=== PATIENT | female | born 1990 ===

== ENCOUNTER 2016-12-08 11:25 | Emergency (ER) | payer MEDICAID ==
[2016-12-08 11:40] VITALS: BP 102/66; RESP 19; TEMP 98.6; O2SAT 99
--- NOTE | 2016-12-08 12:17 | ED PDOC ---
HPI: General Adult Time Seen by Provider: 12/08/16 11:57 Chief Complaint (Provider): headache History Per: Patient History/Exam Limitations: no limitations Additional Complaint(s): 26yo female complaining of bilateral temporal throbbing headache for 2 days associated with intermittent nausea and feeling jittery. When standing up and walking around she feels dizzy as if she could pass out. When she went to sleep last night there were no problems however symptoms continue this morning. She has not taken any medication to relieve pain. Past Medical History Reviewed: Historical Data, Nursing Documentation, Vital Signs Vital Signs: Last Vital Signs Temp 98.6 F 12/08/16 11:38 Pulse 65 12/08/16 12:46 Resp 19 12/08/16 11:38 BP 102/66 12/08/16 11:38 Pulse Ox 99 12/08/16 12:19 - Medical History PMH: No Chronic Diseases - Surgical History Surgical History: Appendectomy - Family History Family History: States: Unknown Family Hx - Social History Current smoker - smoking cessation education provided: No Alcohol: None Drugs: Denies - Home Medications Home Medications: Ambulatory Orders Medication Instructions Recorded Azithromycin [Zithromax] 250 mg PO DAILY #6 cap 03/25/15 Naproxen [Naprosyn] 500 mg PO BID #20 tab 04/27/15 Tizanidine Hydrochloride 4 mg PO Q6 PRN #20 tab 04/27/15 [Tizanidine HCl] Tramadol Hydrochloride [Tramadol 50 mg PO Q6H PRN #20 tab 04/27/15 HCl] Acetic Acid/Antipyrine/Benzo 1 - 2 drop OT BID #14 reji 08/23/15 [Auralgan 14 ml] Amoxicillin 500 mg PO BID #14 cap 08/23/15 Naproxen [Naprosyn] 500 mg PO Q12H #20 tab 05/24/16 miSOPROStol [Cytotec] 200 mcg VAG ONCE #4 tab 07/26/16 traMADol [Ultram] 50 mg PO TID PRN #15 tab 07/26/16 - Allergies Allergies/Adverse Reactions: Allergies Allergy/AdvReac Type Severity Reaction Status Date / Time No Known Allergies Allergy Verified 04/27/15 15:15 Review of Systems ROS Statement: Except As Marked, All Systems Reviewed And Found Negative Neurological: Negative for: Headache Physical Exam - Reviewed Nursing Documentation Reviewed: Yes Vital Signs Reviewed: Yes - Physical Exam Appears: Positive for: Well, Non-toxic, No Acute Distress Head Exam: Positive for: ATRAUMATIC, NORMAL INSPECTION, NORMOCEPHALIC Skin: Positive for: Warm, Dry Eye Exam: Positive for: EOMI, PERRL Extremity: Positive for: Normal ROM Neurologic/Psych: Positive for: Alert, Oriented (x3). Negative for: Motor/ Sensory Deficits - Laboratory Results Result Diagrams: 12/08/16 12:50 12/08/16 12:50 - ECG O2 Sat by Pulse Oximetry: 99 (RA) Pulse Ox Interpretation: Normal Medical Decision Making Medical Decision Makin: Preg (-) EKG: NSR at 65 bpm, no axis deviation, no acute ST changes, as read by ED MD Pro 98 CBC and CMOP resulted WNL Pt mediated with Motin and Flexeril administered for headache, good relief obtained. Pt denies nay headache or dizziness son re-eval. Neuro exam remains non focal. Stable fro discharge at this time. Pt has no complaints on follow up. Disposition - Clinical Impression Clinical Impression: Migraine, Lightheaded - Patient ED Disposition Is Patient to be Admitted: No - Disposition Disposition: Routine/Home Disposition Time: 14:45 Condition: STABLE Instructions: Migraine Headache (ED), Lightheadedness (ED) Additional Comments - Additional Comments Additional Comments: Scribe Attestation: Documented by Tyrese Vargas acting as a scribe for Ileana Sky PA-C. Provider Scribe Attestation: All medical record entries made by the Scribe were at my direction and personally dictated by me. I have reviewed the chart and agree that the record accurately reflects my personal performance of the history, physical exam, medical decision making, and the department course for this patient. I have also personally directed, reviewed, and agree with the discharge instructions and disposition.
[2016-12-08 12:47] VITALS: PULSE 65
[2016-12-08 13:36] LABS: BASO # 0.1 K/uL (0.0-0.2); BASO % 0.8 % (0.0-2.0); EOS % 0.4 % (0.0-4.0); HEMATOCRIT 38.9 % (34.0-47.0); LYMPH # 1.5 K/uL (1.0-4.3); LYMPH % 17.8 % (20.0-40.0); MEAN CELL VOLUME 90.4 fl (81.0-99.0); MEAN CORPUSCULAR HEMOGLOBIN 30.3 pg (27.0-31.0); MEAN CORPUSCULAR HGB CONC 33.6 g/dL (33.0-37.0); MONO # 0.3 K/uL (0.0-0.8); MONO % 3.8 % (0.0-10.0); NEUT # 6.7 K/uL (1.8-7.0); NEUT % 77.2 % (50.0-75.0); NRBC % 0.1 % (0.0-0.0); RED CELL DISTRIBUTION WIDTH 13.7 % (11.5-14.5); WHITE BLOOD COUNT 8.6 K/uL (4.8-10.8)
[2016-12-08 13:47] LABS: ALB/GLOB RATIO 1.4 (1.0-2.1); ALKALINE PHOSPHATASE 58 U/L (38-126); ALT/SGPT 18 U/L (9-52); AST/SGOT 23 U/L (14-36); BILIRUBIN,TOTAL 0.6 mg/dl (0.2-1.3); BLOOD UREA NITROGEN 12 mg/dl (7-17); CALCIUM 9.7 mg/dL (8.4-10.2); CARBON DIOXIDE 22 mmol/L (22-30); CHLORIDE 107 mmol/L (98-107); GFR AFRICAN-AMERICAN > 60; GLUCOSE,RANDOM 88 mg/dL (65-105); SODIUM 145 mmol/l (132-148); TOTAL PROTEIN 7.9 G/DL (6.3-8.2)
--- NOTE | 2016-12-09 05:46 | CARD ---
APPROVED REPORT EKG Measurement Heart [id number] <Conclusion> Normal sinus rhythm Normal ECG
== END 2016-12-08 15:12 | disposition home or self-care (01) ==
LOC: H.ER 11:25
DX: G43.909 Migraine, unspecified, not intractable, without status migrainosus (principal); R42 Dizziness and giddiness

== ENCOUNTER 2017-08-27 20:16 | Emergency (ER) | payer MEDICAID ==
[2017-08-27 20:49] VITALS: BP 101/71; PULSE 73; RESP 16; TEMP 98.5; O2SAT 96
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
[2017-08-27] MEDS ORDERED: Povidone Iodine Topical 10% Sol ONE (22:04)
[2017-08-27] MEDS ORDERED: Lidocaine 1% Inj (20ml) ONE (22:04)
[2017-08-27] MEDS ORDERED: Lidocaine 1% Inj (20ml) IJ ONE (22:38)
== END 2017-08-27 23:25 | disposition home or self-care (01) ==
LOC: H.ER 20:16
DX: S61.411A Laceration without foreign body of right hand, initial encounter (principal); W25.XXXA Contact with sharp glass, initial encounter; Y92.000 Kitchen of unspecified non-institutional (private) residence as the place of occurrence of the external cause

== ENCOUNTER 2017-09-03 15:45 | Emergency (ER) | payer MEDICAID ==
[2017-09-03 15:50] VITALS: BP 100/66; PULSE 79; RESP 18; TEMP 97.6; O2SAT 99
--- NOTE | 2017-09-03 16:02 | ED PDOC ---
HPI: Wound Care - HPI Time Seen by Provider: 09/03/17 15:51 Chief Complaint (Nursing): Suture/Staple Removal Chief Complaint (Provider): Suture removal History Per: Patient Exam Limitations: no limitations Additional Complaint(s): Patient is a 27 y/o female with no significant past medical history presenting to the emergency department for suture removal on right hand. Two 5-0 were placed last week. Denies any complaints. Past Medical History Reviewed: Historical Data Vital Signs: Last Vital Signs Temp 97.6 F 09/03/17 15:48 Pulse 79 09/03/17 15:48 Resp 18 09/03/17 15:48 BP 100/66 09/03/17 15:48 Pulse Ox 99 09/03/17 15:48 - Medical History PMH: No Chronic Diseases - Surgical History Surgical History: Appendectomy - Family History Family History: States: Unknown Family Hx - Social History Current smoker - smoking cessation education provided: No Ex-Smoker (has not smoked in the last 12 months): No Alcohol: None Drugs: Denies - Home Medications Home Medications: Ambulatory Orders Medication Instructions Recorded Azithromycin [Zithromax] 250 mg PO DAILY #6 cap 03/25/15 Naproxen [Naprosyn] 500 mg PO BID #20 tab 04/27/15 Tizanidine Hydrochloride 4 mg PO Q6 PRN #20 tab 04/27/15 [Tizanidine HCl] Tramadol Hydrochloride [Tramadol 50 mg PO Q6H PRN #20 tab 04/27/15 HCl] Acetic Acid/Antipyrine/Benzo 1 - 2 drop OT BID #14 reji 08/23/15 [Auralgan 14 ml] Amoxicillin 500 mg PO BID #14 cap 08/23/15 Naproxen [Naprosyn] 500 mg PO Q12H #20 tab 05/24/16 miSOPROStol [Cytotec] 200 mcg VAG ONCE #4 tab 07/26/16 traMADol [Ultram] 50 mg PO TID PRN #15 tab 07/26/16 Ibuprofen [Motrin] 600 mg PO Q6 #20 tab 12/08/16 - Allergies Allergies/Adverse Reactions: Allergies Allergy/AdvReac Type Severity Reaction Status Date / Time No Known Allergies Allergy Verified 09/03/17 15:48 Review of Systems ROS Statement: Except As Marked, All Systems Reviewed And Found Negative Skin: Positive for: Other (sutures on right hand between 5th and 4th digits) Physical Exam - Reviewed Nursing Documentation Reviewed: Yes Vital Signs Reviewed: Yes - Physical Exam Appears: Positive for: Well, Non-toxic, No Acute Distress Head Exam: Positive for: ATRAUMATIC, NORMAL INSPECTION, NORMOCEPHALIC Skin: Positive for: Normal Color, Warm, Dry Eye Exam: Positive for: Normal appearance Neck: Positive for: Normal Cardiovascular/Chest: Positive for: Regular Rate, Rhythm Respiratory: Negative for: Accessory Muscle Use, Respiratory Distress Extremity: Positive for: Normal ROM. Negative for: Pedal Edema Neurologic/Psych: Positive for: Alert, Oriented (x3) - ECG O2 Sat by Pulse Oximetry: 99 (RA) Medical Decision Making Medical Decision Making: On 08/27/17, patient received sutures on the webspace between her 4th and 5th digit of her right hand. Patient had sustained a laceration in that area. Sutures removed today without any complications. ~ Scribe Attestation: Documented by Jie Dwyer, acting as a scribe for ABRAHAM Lopes. Provider Scribe Attestation: All medical record entries made by the Scribe were at my direction and personally dictated by me. I have reviewed the chart and agree that the record accurately reflects my personal performance of the history, physical exam, medical decision making, and the department course for this patient. I have also personally directed, reviewed, and agree with the discharge instructions and disposition. Disposition - Clinical Impression Clinical Impression: Removal of suture - Disposition Instructions: Stitches Removal (ED) Forms: [employer] (Indonesian)
== END 2017-09-03 16:02 | disposition home or self-care (01) ==
LOC: H.ER 15:45
DX: Z48.02 Encounter for removal of sutures (principal)

== ENCOUNTER 2017-10-23 09:14 | Emergency (ER) | payer MEDICAID, OTHER ==
[2017-10-23 09:35] VITALS: TEMP 98
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
[2017-10-23] MEDS ORDERED: Oxycodone/Acetaminophen 5/325 mg Tab PO STA (11:50)
[2017-10-23] MEDS ORDERED: Oxycodone/Acetaminophen 5/325 mg Tab ONE (12:03)
[2017-10-23 12:52] VITALS: BP 118/65; PULSE 70; RESP 18; O2SAT 100
== END 2017-10-23 12:54 | disposition home or self-care (01) ==
LOC: H.ER 09:14
DX: M54.9 Dorsalgia, unspecified (principal); M54.2 Cervicalgia; S09.90XA Unspecified injury of head, initial encounter; M25.569 Pain in unspecified knee; V03.10XA Pedestrian on foot injured in collision with car, pick-up truck or van in traffic accident, initial encounter; Y92.410 Unspecified street and highway as the place of occurrence of the external cause

== ENCOUNTER 2017-10-24 18:18 | Emergency (ER) | payer MEDICAID, OTHER ==
[2017-10-24 18:21] VITALS: TEMP 98.3; O2SAT 99
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
[2017-10-24 19:44] LABS: BASO # 0.1 K/uL (0.0-0.2); BASO % 1.1 % (0.0-2.0); EOS # 0.2 K/uL (0.0-0.7); EOS % 2.6 % (0.0-4.0); HEMOGLOBIN 12.7 g/dL (12.0-16.0); LYMPH # 1.8 K/uL (1.0-4.3); LYMPH % 28.3 % (20.0-40.0); MEAN CORPUSCULAR HEMOGLOBIN 30.5 pg (27.0-31.0); MEAN CORPUSCULAR HGB CONC 33.6 g/dL (33.0-37.0); MEAN PLATELET VOLUME 9.3 fl (7.2-11.7); MONO # 0.5 K/uL (0.0-0.8); MONO % 8.5 % (0.0-10.0); NEUT # 3.8 K/uL (1.8-7.0); NEUT % 59.5 % (50.0-75.0); NRBC % 0.1 % (0.0-0.0); RBC 4.17 Mil/uL (3.80-5.20); RED CELL DISTRIBUTION WIDTH 13.8 % (11.5-14.5); WHITE BLOOD COUNT 6.4 K/uL (4.8-10.8)
[2017-10-24 19:55] LABS: ALB/GLOB RATIO 1.3 (1.0-2.1); ALBUMIN 4.1 g/dL (3.5-5.0); ALT/SGPT 21 U/L (9-52); AST/SGOT 13 U/L (14-36); BLOOD UREA NITROGEN 16 mg/dl (7-17); CALCIUM 9.2 mg/dL (8.4-10.2); GFR AFRICAN-AMERICAN > 60; GFR NON-AFRICAN AMERICAN > 60
[2017-10-24] MEDS ORDERED: Sodium Chloride 0.9% 1,000 ML IV STA (21:07)
[2017-10-24 22:19] VITALS: BP 100/55; PULSE 74; RESP 21
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
--- NOTE | 2017-10-24 22:29 | ED PDOC ---
- Laboratory Results Result Diagrams: 10/24/17 19:30 10/24/17 19:30 - ECG O2 Sat by Pulse Oximetry: 99 - Progress ED Course And Treament: IMPRESSION: No acute intracranial abnormality. Remainder of findings as above. Thank you for allowing us to participate in the care of your patient. Dictated and Authenticated by: Maximilian Borja MD Imitrex 6.25 sc in ED NS 1 liter wide open Patient feels improved in ED Disposition - Clinical Impression Clinical Impression: Head injury, Post concussion syndrome - POA Present On Arrival: None - Disposition Referrals: [facility] [Outside] Disposition: Routine/Home Disposition Time: 22:28 Condition: STABLE Prescriptions: Meclizine [Antivert] 1 - 2 tab PO Q6 PRN #24 tab PRN Reason: Dizziness Ondansetron [Zofran Odt] 4 mg PO Q8 PRN #8 odt PRN Reason: Nausea/Vomiting Instructions: Postconcussion Syndrome (DC) Forms: [facility] (Persian), [facility] ED School/Work Excuse
== END 2017-10-24 23:15 | disposition home or self-care (01) ==
LOC: H.ER 18:18
DX: F07.81 Postconcussional syndrome (principal)
CPT/HCPCS: 70450; 80053; 81025; 82948; 85025; 96372; 96374; 99284; J2405; J3030; J7040

== ENCOUNTER 2018-01-15 15:47 | Emergency (ER) | payer MEDICAID ==
[2018-01-15] MEDS ORDERED: Sodium Chloride 0.9% 1,000 ML IV STA (16:05)
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
--- NOTE | 2018-01-15 17:36 | CT ---
PROCEDURE: CT HEAD WITHOUT CONTRAST. HISTORY: PRADHAN COMPARISON: 10/24/2017 TECHNIQUE: Axial computed tomography images were obtained through the head/brain without intravenous contrast. Radiation dose: Total exam DLP = 752.87 mGy-cm. This CT exam was performed using one or more of the following dose reduction techniques: Automated exposure control, adjustment of the mA and/or kV according to patient size, and/or use of iterative reconstruction technique. FINDINGS: HEMORRHAGE: No intracranial hemorrhage. BRAIN: No mass effect or edema. The lateral ventricles chronic parallel course and there is no evidence of a corpus callosum on sagittal reconstructions. 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 VENTRICLES: No hydrocephalus. No midline shift. CALVARIUM: Unremarkable. PARANASAL SINUSES: Chronic ethmoid and sphenoid sinusitis. MASTOID AIR CELLS: Unremarkable as visualized. No inflammatory changes. OTHER FINDINGS: None. IMPRESSION: No intracranial mass, hemorrhage or evidence of acute infarct. 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
[2018-01-15 21:26] VITALS: TEMP 98.5
[2018-01-15 21:41] VITALS: BP 104/74; PULSE 78; RESP 18
[2018-01-17 17:48] VITALS: O2SAT 100
== END 2018-01-15 21:40 | disposition home or self-care (01) ==
LOC: H.ER 15:47
DX: R51 Headache (principal); J32.2 Chronic ethmoidal sinusitis; J32.3 Chronic sphenoidal sinusitis
CPT/HCPCS: 70450; 81025; 96361; 96374; 99285; J2765; J7030

== ENCOUNTER 2018-06-17 16:34 | Emergency (ER) | payer MEDICAID ==
[2018-06-17 16:50] VITALS: TEMP 98.2
--- NOTE | 2018-06-17 18:33 | CT ---
Date of service: 06/17/2018 PROCEDURE: CT HEAD WITHOUT CONTRAST. HISTORY: headache, dizziness COMPARISON: Comparison is made with 01/15/2018 TECHNIQUE: Axial computed tomography images were obtained through the head/brain without intravenous contrast. Radiation dose: Total exam DLP = 753.49 mGy-cm. This CT exam was performed using one or more of the following dose reduction techniques: Automated exposure control, adjustment of the mA and/or kV according to patient size, and/or use of iterative reconstruction technique. FINDINGS: HEMORRHAGE: No intracranial hemorrhage. BRAIN: No mass effect or edema. No atrophy or chronic microvascular ischemic changes. VENTRICLES: Abnormal shape of the lateral ventricles is again noted suggestive of agenesis or dysgenesis of the corpus callosum. CALVARIUM: Unremarkable. PARANASAL SINUSES: Unremarkable as visualized. No significant inflammatory changes. MASTOID AIR CELLS: Unremarkable as visualized. No inflammatory changes. OTHER FINDINGS: None. 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 No evidence of acute intracranial hemorrhage mass effect or midline shift.
[2018-06-17 18:49] LABS: BASO # 0.1 K/uL (0.0-0.2); BASO % 1.1 % (0.0-2.0); EOS # 0.2 K/uL (0.0-0.7); EOS % 2.4 % (0.0-4.0); HEMOGLOBIN 13.1 g/dL (12.0-16.0); LYMPH # 2.5 K/uL (1.0-4.3); LYMPH % 32.7 % (20.0-40.0); MEAN CELL VOLUME 91.6 fl (81.0-99.0); MEAN CORPUSCULAR HGB CONC 33.8 g/dL (33.0-37.0); MEAN PLATELET VOLUME 9.5 fl (7.2-11.7); MONO # 0.5 K/uL (0.0-0.8); MONO % 7.1 % (0.0-10.0); NEUT # 4.4 K/uL (1.8-7.0); NEUT % 56.7 % (50.0-75.0); NRBC % 0.1 % (0.0-0.0); RBC 4.24 Mil/uL (3.80-5.20); RED CELL DISTRIBUTION WIDTH 13.7 % (11.5-14.5); WHITE BLOOD COUNT 7.7 K/uL (4.8-10.8)
[2018-06-17 19:06] LABS: ALB/GLOB RATIO 1.3 (1.0-2.1); ALBUMIN 4.2 g/dL (3.5-5.0); ALT/SGPT 15 U/L (9-52); AST/SGOT 28 U/L (14-36); BLOOD UREA NITROGEN 10 mg/dl (7-17); CALCIUM 9.4 mg/dL (8.4-10.2); GFR NON-AFRICAN AMERICAN > 60
--- NOTE | 2018-06-17 20:03 | ED PDOC ---
Syncope/Near Syncope/Dizziness Time Seen by Provider: 06/17/18 17:19 Chief Complaint (Nursing): Dizziness/Lightheaded Chief Complaint (Provider): Dizziness/Lightheaded History Per: Patient History/Exam Limitations: no limitations Onset/Duration Of Symptoms: Hrs Current Symptoms Are (Timing): Still Present Additional Complaint(s): Jaelyn Bess is a 28 year old female with no past medical history who is presenting to the ED for evaluation of dizziness described as room spinning associated with a headache. Patient states that she has had similar episodes in the past on and off but she states that it felt worse today because she was at work. She denies any chest pain or palpitations and offers no other medical complaints. PMD: none provided Past Medical History Reviewed: Historical Data, Nursing Documentation, Vital Signs Vital Signs: Last Vital Signs Temp 98.2 F 06/17/18 16:48 Pulse 69 06/17/18 16:48 Resp 16 06/17/18 16:48 BP 112/66 06/17/18 16:48 Pulse Ox 99 06/17/18 16:48 - Medical History PMH: No Chronic Diseases Denies: Chronic Kidney Disease - Surgical History Surgical History: Appendectomy - Family History Family History: States: Unknown Family Hx - Social History Current smoker - smoking cessation education provided: No Alcohol: None Drugs: Denies - Immunization History Hx Tetanus Toxoid Vaccination: No Hx Influenza Vaccination: No Hx Pneumococcal Vaccination: No - Home Medications Home Medications: Ambulatory Orders Medication Instructions Recorded Naproxen [Naprosyn] 500 mg PO BID PRN #15 tablet 01/15/18 Ondansetron [Zofran Odt] 4 mg PO Q8H PRN #15 odt 01/15/18 Meclizine [Meclizine*] 25 mg PO Q6 PRN #30 tab 06/17/18 - Allergies Allergies/Adverse Reactions: Allergies Allergy/AdvReac Type Severity Reaction Status Date / Time No Known Allergies Allergy Verified 06/17/18 16:48 Review of Systems ROS Statement: Except As Marked, All Systems Reviewed And Found Negative Cardiovascular: Negative for: Chest Pain, Palpitations Neurological: Positive for: Headache, Dizziness Physical Exam - Reviewed Nursing Documentation Reviewed: Yes Vital Signs Reviewed: Yes - Physical Exam Appears: Positive for: Non-toxic, No Acute Distress Head Exam: Positive for: ATRAUMATIC, NORMAL INSPECTION, NORMOCEPHALIC Skin: Positive for: Normal Color, Warm, DRY Eye Exam: Positive for: EOMI, Normal appearance, PERRL ENT: Positive for: Normal ENT Inspection Neck: Positive for: Normal, Painless ROM Cardiovascular/Chest: Positive for: Regular Rate, Rhythm. Negative for: Murmur Respiratory: Positive for: Normal Breath Sounds. Negative for: Respiratory Distress Gastrointestinal/Abdominal: Positive for: Normal Exam, Soft. Negative for: Tenderness Back: Positive for: Normal Inspection. Negative for: L CVA Tenderness, R CVA Tenderness Extremity: Positive for: Normal ROM. Negative for: Deformity, Swelling Neurologic/Psych: Positive for: Alert, staff appraiser II-XII (normal ), Oriented. Negative for: Motor/Sensory Deficits - Laboratory Results Result Diagrams: 06/17/18 18:40 06/17/18 18:40 - ECG O2 Sat by Pulse Oximetry: 99 (RA) Pulse Ox Interpretation: Normal Medical Decision Making Medical Decision Making: Time: 18:07 Plan: --CT Head --CMP --ED Urine --ED Urine Dipstick --CBC --Antivert 25 mg PO --Tylenol 650 mg PO Scribe Attestation: Documented by Laney Ritchie, acting as a scribe for Maddy Rodriguez PA-C. Provider Scribe Attestation: All medical record entries made by the Scribe were at my direction and personally dictated by me. I have reviewed the chart and agree that the record accurately reflects my personal performance of the history, physical exam, medical decision making, and the department course for this patient. I have also personally directed, reviewed, and agree with the discharge instructions and disposition. Disposition - Clinical Impression Clinical Impression: Vertigo - Patient ED Disposition Is Patient to be Admitted: No Counseled Patient/Family Regarding: Diagnosis, Need For Followup, Rx Given - Disposition Referrals: [facility] [Outside] Disposition: Routine/Home Disposition Time: 20:03 Condition: GOOD Prescriptions: Meclizine [Meclizine*] 25 mg PO Q6 PRN #30 tab PRN Reason: Dizziness Instructions: Vertigo (a Type of Dizziness) Forms: [employer] (Chadian), [facility] ED School/Work Excuse
[2018-06-17 20:19] VITALS: BP 113/71; PULSE 60; RESP 22
[2018-06-19 21:42] VITALS: O2SAT 99
== END 2018-06-17 20:31 | disposition home or self-care (01) ==
LOC: H.ER 16:34
DX: R42 Dizziness and giddiness (principal)

== ENCOUNTER 2018-12-17 14:24 | Emergency (ER) | payer MEDICAID ==
[2018-12-17] MEDS ORDERED: Sodium Chloride 0.9% 1,000 ML IV STA (15:03)
[2018-12-17 15:44] LABS: BASO # 0.1 K/uL (0.0-0.2); EOS # 0.3 K/uL (0.0-0.7); EOS % 3.9 % (0.0-4.0); LYMPH # 2.8 K/uL (1.0-4.3); LYMPH % 41.5 % (20.0-40.0); MEAN CELL VOLUME 91.8 fl (81.0-99.0); MEAN CORPUSCULAR HEMOGLOBIN 30.6 pg (27.0-31.0); MEAN CORPUSCULAR HGB CONC 33.3 g/dL (33.0-37.0); MEAN PLATELET VOLUME 10.1 fl (7.2-11.7); MONO # 0.4 K/uL (0.0-0.8); MONO % 6.2 % (0.0-10.0); NEUT # 3.3 K/uL (1.8-7.0); NEUT % 47.4 % (50.0-75.0); NRBC % 0.1 % (0.0-0.0); RBC 4.24 Mil/uL (3.80-5.20); RED CELL DISTRIBUTION WIDTH 13.6 % (11.5-14.5); WHITE BLOOD COUNT 6.9 K/uL (4.8-10.8)
[2018-12-17 16:06] LABS: ALB/GLOB RATIO 1.5 (1.0-2.1); ALBUMIN 4.5 g/dL (3.5-5.0); ALT/SGPT 16 U/L (9-52); AST/SGOT 18 U/L (14-36); BLOOD UREA NITROGEN 17 mg/dl (7-17); CALCIUM 9.4 mg/dL (8.4-10.2); GFR NON-AFRICAN AMERICAN > 60
--- NOTE | 2018-12-17 16:32 | ED PDOC ---
Syncope/Near Syncope/Dizziness Time Seen by Provider: 12/17/18 14:41 Chief Complaint (Nursing): Syncope History Per: Patient Additional Complaint(s): Pt. 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 States she began to feel "dizzy" which she describes as the "room" spinning. She decided to go to he breakroom and sit down but then felt nauseous. States she vomited once. Symptoms have persisted and are worsened when she moves her head. Denies head injury, headache, fever, chills, hematemesis, abdominal pain, hearing changes. Past Medical History Reviewed: Historical Data, Nursing Documentation, Vital Signs Vital Signs: Last Vital Signs Temp 98 F 12/17/18 14:38 Pulse 68 12/17/18 14:38 Resp 20 12/17/18 14:38 BP 126/49 L 12/17/18 14:38 Pulse Ox 100 12/17/18 14:38 - Medical History PMH: Denies: Chronic Kidney Disease - Surgical History Surgical History: Appendectomy - Family History Family History: States: No Known Family Hx - Immunization History Hx Tetanus Toxoid Vaccination: No Hx Influenza Vaccination: No Hx Pneumococcal Vaccination: No - Home Medications Home Medications: Ambulatory Orders Medication Instructions Recorded Magnesium Citrate [[facility] 300 ml PO ONCE #1 bottle 07/16/18 Pharmacy Magnesium Citrate] Meclizine HCl 50 mg PO Q6 PRN #12 tablet 12/17/18 - Allergies Allergies/Adverse Reactions: Allergies Allergy/AdvReac Type Severity Reaction Status Date / Time No Known Allergies Allergy Verified 12/17/18 14:38 Review of Systems ROS Statement: Except As Marked, All Systems Reviewed And Found Negative Gastrointestinal: Positive for: Nausea, Vomiting Neurological: Positive for: Dizziness Physical Exam - Physical Exam Appears: Positive for: Well, Non-toxic, No Acute Distress Head Exam: Positive for: ATRAUMATIC, NORMAL INSPECTION, NORMOCEPHALIC Skin: Positive for: Normal Color, Warm. Negative for: Rash Eye Exam: Positive for: Normal appearance, EOMI, PERRL. Negative for: Nystagmus ENT: Positive for: Normal ENT Inspection Cardiovascular/Chest: Positive for: Regular Rate, Rhythm. Negative for: Tachycardia Respiratory: Positive for: Normal Breath Sounds. Negative for: Respiratory Distress Gastrointestinal/Abdominal: Positive for: Soft. Negative for: Tenderness Neurological/Psych: Positive for: Awake, Alert, Oriented (x3) - Laboratory Results Result Diagrams: 12/17/18 15:35 12/17/18 15:35 Lab Results: Troponin I < 0.0120 ng/mL (0.00-0.120) 12/17/18 15:35 Total Bilirubin 0.3 mg/dl (0.2-1.3) 12/17/18 15:35 AST 18 U/L (14-36) 12/17/18 15:35 ALT 16 U/L (9-52) 12/17/18 15:35 Alkaline Phosphatase 64 U/L (38-126) 12/17/18 15:35 Total Protein 7.5 G/DL (6.3-8.2) 12/17/18 15:35 Albumin 4.5 g/dL (3.5-5.0) 12/17/18 15:35 Globulin 3.0 gm/dL (2.2-3.9) 12/17/18 15:35 Albumin/Globulin Ratio 1.5 (1.0-2.1) 12/17/18 15:35 - ECG ECG: Positive for: Interpreted By Me ECG Rhythm: Positive for: Sinus Rhythm. Negative for: ST/T Changes Rate: 76 O2 Sat by Pulse Oximetry: 100 - Progress ED Course And Treament: Labs, IV NS bolus x 1, antivert 50mg PO, zofran 4mg IV ordered. Pt. placed on night monitor. 1650 On re-evaluation, pt. reports dizziness and nausea have completely resolved but just a few minutes ago she developed L sided chest pain which is non-radiating. No distress. Cardiac RRR. Resp: Lungs CTA B/L. 1700 Repeat EKG: Sinus bradycardia at [address]-T wave changes. 1820 On 2nd re-evaluation, pt. seen walking in ED room. Reports feeling much better. Chest pain has resolved. Dizziness and nausea have not returned. Gait steady unassisted. Disposition - Clinical Impression Clinical Impression: Vertigo - Patient ED Disposition Is Patient to be Admitted: No - Disposition Referrals: [facility] [Outside] Disposition: Routine/Home Disposition Time: 18:20 Condition: IMPROVED Additional Instructions: FOLLOW UP WITH YOUR DOCTOR FOR FURTHER EVALUATION RETURN TO ED IMMEDIATELY IF SYMPTOMS WORSEN HETAL OCAMPO, thank you for letting us take care of you today. Your provider was Radha Weber MD and you were treated for DIZZY,. The emergency medical care you received today was directed at your acute symptoms. If you were prescribed any medication, please fill it and take as directed. It may take several days for your symptoms to resolve. Return to the Emergency Department if your symptoms worsen, do not improve, or if you have any other problems. Please contact your doctor or call one of the physicians/clinics you have been referred to that are listed on the Patient Visit Information form that is included in your discharge packet. Bring any paperwork you were given at discharge with you along with any medications you are taking to your follow up visit. Our treatment cannot replace ongoing medical care by a primary care provider outside of the emergency department. Thank you for allowing the [facility] team to be part of your care today. If you had an X-Ray or CT scan: A Radiologist will review the ED reading if any change in treatment is needed we will contact you. If you had a blood, urine, or wound culture: It will take several days for the results, if any change in treatment is needed we will contact you. If you had an STI test: It will take 48 hours for the results. Please call after 1 week if you have not heard back. Prescriptions: Meclizine HCl 50 mg PO Q6 PRN #12 tablet PRN Reason: vertigo Instructions: Vertigo (a Type of Dizziness) (DC) Forms: [employer] (Sinhala), [facility] ED School/Work Excuse
[2018-12-17] MEDS ORDERED: Naproxen 500 MG TAB PO ONE (16:56)
--- NOTE | 2018-12-17 18:02 | CARD ---
APPROVED REPORT Date of service: 12/17/2018 EKG Measurement Heart [id number] <Conclusion> Normal sinus rhythm Normal ECG
[2018-12-17 18:22] VITALS: BP 101/53; RESP 15; TEMP 99.3
[2018-12-17 19:19] VITALS: PULSE 76; O2SAT 100
--- NOTE | 2018-12-18 17:35 | CARD ---
APPROVED REPORT Date of service: 12/17/2018 EKG Measurement Heart [id number] <Conclusion> Sinus bradycardia Otherwise normal ECG
== END 2018-12-17 18:22 | disposition home or self-care (01) ==
LOC: H.ER 14:24
DX: R42 Dizziness and giddiness (principal)
CPT/HCPCS: 80053; 81025; 82948; 84484; 85025; 93005; 96361; 96374; 99285; J2405; J7030

== ENCOUNTER 2018-12-23 15:01 | Emergency (ER) | payer MEDICAID ==
[2018-12-23 15:25] VITALS: RESP 18
[2018-12-23] MEDS ORDERED: Sodium Chloride 0.9% 1,000 ML IV STA (15:47)
[2018-12-23] MEDS ORDERED: DiphenhydrAMINE 50 mg/ml Inj IVP STA (15:47)
[2018-12-23] MEDS ORDERED: DiphenhydrAMINE 50 mg/ml Inj ONE (16:08)
--- NOTE | 2018-12-23 16:47 | ED PDOC ---
HPI: Headache Time Seen by Provider: 12/23/18 15:28 Chief Complaint (Nursing): Headache Chief Complaint (Provider): Headache History Per: Patient History/Exam Limitations: no limitations Onset/Duration Of Symptoms: Sudden Onset Current Symptoms Are (Timing): Still Present Associated Symptoms: Nausea Additional Complaint(s): 28 year old female presents to the ED for an evaluation of frontal headache with a gradual onset today after work. Patient reports the headache is localized and associated with nausea and sound sensitivity. She took Tylenol without relief. Otherwise, fever chills, head injury, dizziness or abdominal pain. Past Medical History Reviewed: Historical Data, Nursing Documentation, Vital Signs Vital Signs: Last Vital Signs Temp 98.3 F 12/23/18 15:23 Pulse 68 12/23/18 15:23 Resp 18 12/23/18 15:23 BP 110/69 12/23/18 15:23 Pulse Ox 99 12/23/18 15:23 Primary Care Provider: DoctorNuno - Medical History PMH: No Chronic Diseases Denies: Chronic Kidney Disease - Surgical History Surgical History: Appendectomy - Family History Family History: States: Unknown Family Hx - Immunization History Hx Tetanus Toxoid Vaccination: No Hx Influenza Vaccination: No Hx Pneumococcal Vaccination: No - Home Medications Home Medications: Ambulatory Orders Medication Instructions Recorded Magnesium Citrate [[facility] 300 ml PO ONCE #1 bottle 07/16/18 Pharmacy Magnesium Citrate] Meclizine HCl 50 mg PO Q6 PRN #12 tablet 12/17/18 Metoclopramide [Reglan] 10 mg PO TID PRN #10 tab 12/23/18 - Allergies Allergies/Adverse Reactions: Allergies Allergy/AdvReac Type Severity Reaction Status Date / Time No Known Allergies Allergy Verified 12/23/18 15:22 Review of Systems ROS Statement: Except As Marked, All Systems Reviewed And Found Negative Constitutional: Negative for: Fever, Chills ENT: Positive for: Other (sound sensitivity ) Gastrointestinal: Positive for: Nausea. Negative for: Abdominal Pain Neurological: Positive for: Headache. Negative for: Dizziness, Other (head injury ) Physical Exam - Reviewed Nursing Documentation Reviewed: Yes Vital Signs Reviewed: Yes - Physical Exam Appears: Positive for: No Acute Distress Head Exam: Positive for: ATRAUMATIC, NORMAL INSPECTION, NORMOCEPHALIC Skin: Positive for: Normal Color, Warm, Dry Eye Exam: Positive for: EOMI, Normal appearance, PERRL ENT: Positive for: Normal ENT Inspection Cardiovascular/Chest: Positive for: Regular Rate, Rhythm. Negative for: Murmur Respiratory: Positive for: Normal Breath Sounds. Negative for: Respiratory Distress Gastrointestinal/Abdominal: Positive for: Normal Exam, Soft. Negative for: Tenderness Neurological/Psych: Positive for: Awake, Alert, Normal Tone, Symmetric/Intact Strength, Oriented (x3), Gait (steady). Negative for: Mood/Affect, Lethargic, Listless, Motor/Sensory Deficits, Facial Droop - Laboratory Results Result Diagrams: 12/23/18 16:05 12/23/18 16:05 - ECG O2 Sat by Pulse Oximetry: 99 (RA) Pulse Ox Interpretation: Normal Medical Decision Making Medical Decision Making: Time: 1547 Plan: Head w/o contrast CT CMP Lipase CBC w/ differential Benadryl 50mg Normal Saline 100 mls/hr Reglan 10mg IV insertion UA Re-evaluation 1713 PROCEDURE: CT HEAD WITHOUT CONTRAST. HISTORY: headache COMPARISON: 10/24/2017, 01/15/2018 and 06/17/2018. TECHNIQUE: Axial computed tomography images were obtained through the head/brain without intravenous contrast. Supplemental Coronal and Sagittal projections created and reviewed. Radiation dose: Total exam DLP = 801.13 mGy-cm. This CT exam was performed using one or more of the following dose reduction techniques: Automated exposure control, adjustment of the mA and/or kV according to patient size, and/or use of iterative reconstruction technique. FINDINGS: HEMORRHAGE: No intracranial hemorrhage. BRAIN: No mass effect or edema. No atrophy or chronic microvascular ischemic changes. Agenesis of the corpus callosum, normal variant, findings unchanged compared to prior studies. VENTRICLES: Unremarkable. No hydrocephalus. CALVARIUM: Unremarkable. PARANASAL SINUSES: Unremarkable as visualized. No significant inflammatory changes. MASTOID AIR CELLS: Unremarkable as visualized. No inflammatory changes. OTHER FINDINGS: None. IMPRESSION: No acute intracranial abnormalities. No significant findings to account for the clinical presentation. No significant interval change compared to the prior examination(s). On re-evaluation, pt. reports complete relief of headache. Repeat neuro exam is non-focal. Gait steady, unassisted. Scribe Attestation: Documented by Yrn Vásquez, acting as a scribe for Thuan Hernandez PA-C Provider Scribe Attestation: All medical record entries made by the Scribe were at my direction and personally dictated by me. I have reviewed the chart and agree that the record accurately reflects my personal performance of the history, physical exam, medical decision making, and the department course for this patient. I have also personally directed, reviewed, and agree with the discharge instructions and disposition. Disposition - Clinical Impression Clinical Impression: Headache - Patient ED Disposition Is Patient to be Admitted: No - Disposition Referrals: Michael Lozoya MD [Medical Doctor] - Disposition: Routine/Home Disposition Time: 17:30 Condition: IMPROVED Additional Instructions: FOLLOW UP WITH YOUR DOCTOR FOR FURTHER EVALUATION RETURN TO ED IMMEDIATELY IF SYMPTOMS WORSEN HETAL [place], thank you for letting us take care of you today. Your provider was Sumit Crook MD and you were treated for HEADAHCE,VOMITING. The emergency medical care you received today was directed at your acute symptoms. If you were prescribed any medication, please fill it and take as directed. It may take several days for your symptoms to resolve. Return to the Emergency Department if your symptoms worsen, do not improve, or if you have any other problems. Please contact your doctor or call one of the physicians/clinics you have been referred to that are listed on the Patient Visit Information form that is included in your discharge packet. Bring any paperwork you were given at discharge with you along with any medications you are taking to your follow up visit. Our treatment cannot replace ongoing medical care by a primary care provider outside of the emergency department. Thank you for allowing the [email or web address] team to be part of your care today. If you had an X-Ray or CT scan: A Radiologist will review the ED reading if any change in treatment is needed we will contact you. If you had a blood, urine, or wound culture: It will take several days for the results, if any change in treatment is needed we will contact you. If you had an STI test: It will take 48 hours for the results. Please call after 1 week if you have not heard back. Prescriptions: Metoclopramide [Reglan] 10 mg PO TID PRN #10 tab PRN Reason: headache or nausea Instructions: Headache, Adult (DC) Forms: [employer] (Fijian), [facility] ED School/Work Excuse Print Language: MONEGASQUE
[2018-12-23 17:00] LABS: BASO # 0.1 K/uL (0.0-0.2); BASO % 0.9 % (0.0-2.0); EOS % 0.4 % (0.0-4.0); HEMOGLOBIN 13.7 g/dL (12.0-16.0); LYMPH # 1.9 K/uL (1.0-4.3); LYMPH % 21.2 % (20.0-40.0); MEAN CELL VOLUME 91.3 fl (81.0-99.0); MEAN CORPUSCULAR HEMOGLOBIN 30.5 pg (27.0-31.0); MEAN CORPUSCULAR HGB CONC 33.4 g/dL (33.0-37.0); MEAN PLATELET VOLUME 9.7 fl (7.2-11.7); MONO # 0.4 K/uL (0.0-0.8); MONO % 4.8 % (0.0-10.0); NEUT # 6.4 K/uL (1.8-7.0); NEUT % 72.7 % (50.0-75.0); RBC 4.49 Mil/uL (3.80-5.20); RED CELL DISTRIBUTION WIDTH 13.9 % (11.5-14.5); WHITE BLOOD COUNT 8.9 K/uL (4.8-10.8)
[2018-12-23 17:06] LABS: SQUAMOUS EPITHIAL 2 /hpf (0-5); URINE BILIRUBIN NEGATIVE (NEGATIVE); URINE BLOOD SMALL (NEGATIVE); URINE CLARITY SLIGHTY-CLOUDY (Clear); URINE COLOR YELLOW (YELLOW); URINE GLUCOSE (UA) NEG (NEGATIVE); URINE LEUKOCYTE ESTERASE NEG Leu/uL (Negative); URINE PROTEIN 30 mg/dL (NEGATIVE); URINE UROBILINOGEN 0.2-1.0 mg/dL (0.2-1.0)
[2018-12-23 17:11] LABS: ALB/GLOB RATIO 1.4 (1.0-2.1); ALBUMIN 4.7 g/dL (3.5-5.0); ALT/SGPT 18 U/L (9-52); AST/SGOT 21 U/L (14-36); BLOOD UREA NITROGEN 15 mg/dl (7-17); CALCIUM 9.3 mg/dL (8.4-10.2); GFR NON-AFRICAN AMERICAN > 60; LIPASE 51 U/L (23-300)
--- NOTE | 2018-12-23 17:17 | CT ---
Date of service: 12/23/2018 PROCEDURE: CT HEAD WITHOUT CONTRAST. HISTORY: headache COMPARISON: 10/24/2017, 01/15/2018 and 06/17/2018. TECHNIQUE: Axial computed tomography images were obtained through the head/brain without intravenous contrast. Supplemental Coronal and Sagittal projections created and reviewed. Radiation dose: Total exam DLP = 801.13 mGy-cm. This CT exam was performed using one or more of the following dose reduction techniques: Automated exposure control, adjustment of the mA and/or kV according to patient size, and/or use of iterative reconstruction technique. FINDINGS: HEMORRHAGE: No intracranial hemorrhage. BRAIN: No mass effect or edema. No atrophy or chronic microvascular ischemic changes. Agenesis of the corpus callosum, normal variant, findings unchanged compared to prior studies. VENTRICLES: Unremarkable. No hydrocephalus. CALVARIUM: Unremarkable. PARANASAL SINUSES: Unremarkable as visualized. No significant inflammatory changes. MASTOID AIR CELLS: Unremarkable as visualized. No inflammatory changes. OTHER FINDINGS: None. IMPRESSION: No acute intracranial abnormalities. No significant findings to account for the clinical presentation. No significant interval change compared to the prior examination(s).
[2018-12-23 19:39] VITALS: BP 100/60; PULSE 70; TEMP 98.1
[2018-12-23 19:49] VITALS: O2SAT 99
== END 2018-12-23 19:39 | disposition home or self-care (01) ==
LOC: H.ER 15:01
DX: R51 Headache (principal)
CPT/HCPCS: 70450; 80053; 81003; 81025; 83690; 85025; 96361; 96374; 96375; 99285; J1200; J2765; J7030